=== PATIENT | female | born 1985 | race African-American/Black ===

== ENCOUNTER 2017-03-19 11:51 | Emergency (ER) | payer MEDICAID ==
[~2017-03-19] VITALS: Ht 165.1 cm; Wt 68.5 kg
[~2017-03-19 11:51] MED LIST: ATEN-42 PO
[2017-03-19 13:34] LABS: EOSINOPHILS % 5.6 % (0.0-5.0); HEMATOCRIT. 41.4 % (36.0-48.0); HEMOGLOBIN. 14.3 g/dL (12.0-16.0); LYMPHOCYTES % 25.4 % (20.0-50.0); MEAN CORPUSCULAR VOLUME 89.5 fL (81.0-99.0); MONOCYTES % 9.2 % (2.0-8.0); NEUTROPHILS % 58.8 % (40.0-76.0); PLATELET 332 x1000/uL (130-400); RED BLOOD CELL COUNT 4.62 mill/uL (4.2-5.4); RED CELL DISTRIBUTION WIDTH 14.6 % (11.6-14.6)
[2017-03-19 13:41] LABS: INR 1.1; PROTHROMBIN TIME 10.9 sec (9.4-11.6)
[2017-03-19 13:50] LABS: CARBON DIOXIDE 31 mEq/L (21-32); CHLORIDE 103 mEq/L (98-107); T4 FREE 0.97 ng/dL (0.76-1.46); TROPONIN I < 0.02 ng/mL (0.00-0.04)
[2017-03-19 15:57] LABS: CLARITY URINE CLOUDY (CLEAR); COLOR URINE YELLOW (YELLOW); KETONES URINE NEGATIVE (NEGATIVE); LEUKOCYTE ESTERASE URINE NEGATIVE (NEGATIVE); NITRITE URINE NEGATIVE (NEGATIVE); OCCULT BLOOD URINE NEGATIVE (NEGATIVE); PROTEIN URINE 2+ (NEGATIVE); SPECIFIC GRAVITY URINE 1.012 (1.005-1.030)
[2017-03-19 16:04] LABS: *AMPHETAMINES SCREEN URINE NEGATIVE (NEGATIVE); *BARBITURATES SCREEN URINE NEGATIVE (NEGATIVE); *BENZODIAZEPINES SCREEN URINE NEGATIVE (NEGATIVE); *COCAINE SCREEN URINE NEGATIVE (NEGATIVE); METHADONE URINE SCREEN NEGATIVE (NEGATIVE); OPIATES URINE SCREEN NEGATIVE (NEGATIVE); PHENCYCLIDINE URINE SCREEN NEGATIVE (NEGATIVE)
[2017-03-19 16:05] LABS: CANNABINOID URINE SCREEN PRESUMTIVE POSITIVE (NEGATIVE)
[2017-03-19] MEDS ORDERED: CLONIDINE 0.2MG TABLET PO ONE (17:30)
[2017-03-19] MEDS ORDERED: BISACODYL 5MG TABLET PO ONE (17:45)
[2017-03-19] MEDS ORDERED: AMLODIPINE 5MG TABLET PO ONE (17:45)
[2017-03-19 18:25] VITALS: BP 181/96
== END 2017-03-19 18:44 | disposition home or self-care (01) ==
LOC: ER 11:51
DX: K56.41 Fecal impaction (principal); R10.9 Unspecified abdominal pain; R11.2 Nausea with vomiting, unspecified; R53.1 Weakness; D72.821 Monocytosis (symptomatic); D72.1 Eosinophilia; E87.6 Hypokalemia; E86.0 Dehydration; F17.210 Nicotine dependence, cigarettes, uncomplicated; F12.10 Cannabis abuse, uncomplicated; I10 Essential (primary) hypertension; R63.0 Anorexia; N28.1 Cyst of kidney, acquired
CPT/HCPCS: 36415; 71045; 74176; 80053; 80305; 81001; 81025; 83036; 83520; 83880; 84439; 84443; 84484; 85025; 85610; 87040; 87070; 87086; 87430; 87804; 93005; 99285; Z7610